=== PATIENT | female | born 2000 | race Caucasian/White ===

== ENCOUNTER 2021-04-16 12:35 | Outpatient (CLI) | payer MEDICAID, SELFPAY ==
[2021-04-16 12:35] VITALS: BMI 27.0
[2021-04-16 12:48] VITALS: RESP 18
[2021-04-16 12:55] VITALS: BP 118/69; PULSE 102
[2021-04-16 13:09] LABS: Actim Prom Negative
[2021-04-16 13:10] VITALS: BP 125/72; PULSE 103
== END 2021-04-16 13:20 | disposition home or self-care (01) ==
LOC: OPOB 12:43 → OBGYN 12:44
PROVIDERS: PCP Pediatrics Adolescent Medicine; Visit Provider Family Medicine
DX: O99.891 Other specified diseases and conditions complicating pregnancy (principal); N89.8 Other specified noninflammatory disorders of vagina
CPT/HCPCS: 59025; 84112; 99211

== ENCOUNTER 2021-06-25 09:15 | Inpatient (IN) | payer MEDICAID, SELFPAY ==
[2021-06-25] VITALS (84 sets, daily range): BP systolic 87–144; BP diastolic 51–93; PULSE 63–108; RESP 17–20; TEMP 36.2–37.2; O2SAT 97–100; BMI 28.7
[2021-06-25 08:40] LABS: Actim Prom Positive
[2021-06-25 09:27] LABS: Basophils # 0.1 10^3/uL (0.0-0.1); Basophils % 0.4 %; Eosinophils # 0.1 10^3/uL (0.0-0.8); Eosinophils % 0.7 %; Hematocrit 33.4 % (37.0-47.0); Hemoglobin 10.9 g/dL (11.5-15.3); Lymphocytes % 15.5 %; Mean Corpuscular HGB Conc 32.6 g/dL (30.0-36.0); Mean Corpuscular Hemoglobin 28.6 pg (28.0-34.0); Mean Corpuscular Volume 87.7 fl (81-99); Mean Platelet Volume 10.2 fL (7.4-10.4); Monocytes # 1.5 10^3/uL (0.2-0.9); Monocytes % 7.8 %; Neutrophils # 14.39 10^3/uL (1.8-7.7); Neutrophils % 74.6 %; Nucleated Red Blood Cells % 0 %; Platelet Count 339 10^3/cmm (130-400); Red Blood Count 3.81 10^6/uL (4.1-5.3); Red Cell Distribution Width 13.9 % (12.1-15.1); White Blood Count 19.3 10^3/uL (4.0-10.0)
[2021-06-25] MEDS: lactated ringers 1,000 ML 999 ML IV ×2 (10:17→11:01)
[2021-06-25 11:46] LABS: Adenovirus Not Detected (NOT DETECT); Chlamydia Pneumoniae Not Detected (NOT DETECT); Coronavirus 229E,HKU1,NL63,OC4 Not Detected (NOT DETECT); Human Metapneumovirus Detected (NOT DETECT); Human Rhinovirus/Enterovirus Not Detected (NOT DETECT); Influenza A Not Detected (NOT DETECT); Influenza A H1 Not Detected (NOT DETECT); Influenza A H1-2009 Not Detected (NOT DETECT); Influenza A H3 Not Detected (NOT DETECT); Influenza B Not Detected (NOT DETECT); Mycoplasma Pneumoniae Not Detected (NOT DETECT); Parainfluenza Virus Type 1 Not Detected (NOT DETECT); Parainfluenza Virus Type 2 Not Detected (NOT DETECT); Parainfluenza Virus Type 3 Not Detected (NOT DETECT); Parainfluenza Virus Type 4 Not Detected (NOT DETECT); Respiratory Syncytial Virus A Not Detected (NOT DETECT); Respiratory Syncytial Virus B Not Detected (NOT DETECT); SARS-COV-2 Not Detected (NOT DETECT)
[2021-06-25] MEDS: dextrose 5%-lactated ringers 1,000 ML 125 ML IV ×2 (11:57→18:56)
[2021-06-25 12:00] LABS: Human Metapneumovirus Detected (NOT DETECT); Human Rhinovirus/Enterovirus Not Detected (NOT DETECT); Results from Genmark
--- NOTE | 2021-06-25 18:49 | PM.OPHPUD ---
Labor & Delivery H&P Update Date of Procedure: June 25, 2021 Date H&P Performed: 06/24/21 H&P update information: I have reviewed H&P completed within last 30 days and Changes to prior documentation as noted here Changes to previous documentation: Membranes are ruptured Admission Diagnosis: 21-year-old 1 at 38 weeks estimated gestational age Planned procedure: Spontaneous vaginal delivery Other information: The patient is a healthy 1 female at 38 weeks who presented with spontaneous rupture of membranes. She had consistent contractions with making cervical change. An epidural was placed. Her has been unremarkable. Her blood type is O+. Her antibody screen is negative. Her hepatitis B, HIV, RPR were all negative. Her glucose screen was negative. And her GBS status was negative. Related Problem List Diagnoses (1) 38 weeks gestation of : (2) Spontaneous rupture of membranes:
[2021-06-25] MEDS: oxytocin 30 UNIT/500 ML BAG 500 UNIT IV (19:30)
--- NOTE | 2021-06-25 19:41 | PM.DELIVERY ---
Delivery Note: Date of delivery: June 25, 2021 Pre-delivery diagnoses: 31-year-old 1 female at 38 weeks estimated gestational age Post-delivery diagnoses: Status post spontaneous vaginal delivery Procedure: Spontaneous vaginal delivery Op report anesthesia: Epidural Delivering Physician: Julián Pierre Estimated blood loss (mL): 75 Pre-Delivery Course: The patient presented to the hospital with spontaneous rupture of membranes. She was having consistent contractions and was making cervical change. An epidural was placed. She progressed to complete without difficulty. She progressed to complete without difficulty. The baby did have several long decelerations. Fortunately, the heart tones also had good variability and accelerations. Delivery: DELIVERY: The patient progressed to complete without difficulty. She delivered a [] with a weight of [] with Apgars of []. The baby was delivered from the [] position. The baby's mouth and nose were suctioned at the site of the perineum. The baby was then completely delivered and placed on the mother's abdomen. The cord was then clamped and cut. There was no nuchal cord. There was no meconium. The placenta and 3 vessel cord were delivered intact shortly thereafter. The perineum and vaginal vault were carefully examined. No lacerations were noted. Both the mother and the baby were in stable condition. Post-Delivery Status: Good A&P Assessment and plan (1) 38 weeks gestation of : Status: Acute (2) Spontaneous rupture of membranes: Status: Acute Coding Level of Care Code Acute Coating Technician for Chg Fwd Diagnoses 38 weeks gestation of Z3A.38 Spontaneous rupture of membranes
[2021-06-25] MEDS: ibuprofen 800 mg tablet PO (20:46)
[2021-06-26] VITALS (8 sets, daily range): BP systolic 99–124; BP diastolic 64–79; PULSE 81–122; RESP 16–18; TEMP 36.4–36.7; O2SAT 96–97
[2021-06-26] MEDS: HYDROcodone-acetaminophen 5-325 mg Tablet PO ×2 (00:13→06:13)
--- NOTE | 2021-06-26 07:42 | P.DS_ITS ---
Discharge Providers DIESEL MECHANIC Date of Admission: 06/25/21 09:15 Date of Discharge: 07/11/21 Attending Provider at Admission: Julián Pierre MD Attending Provider at Discharge: Julián Pierre MD Diagnoses at Discharge Discharge Diagnosis (1) 38 weeks gestation of : Status: Resolved (2) Spontaneous rupture of membranes: Status: Resolved Reason for Visit Reason for Visit: possible rom Hospital Course Hospital Course The patient presented to the hospital with spontaneous rupture of membranes. She received an epidural. She progressed to complete and had an unremarkable delivery of a healthy appearing male . Her bleeding was within normal limits. Her pain was well controlled. She breast-fed her . With the assistance of the nurses, she was able to breast-feed successfully. There were no other concerns. Information Peripartum Data: Delivery Method: Vaginal Physical Exam Narrative: EXAM NARRATIVE: The patient is alert. She appears comfortable. Her heart has a regular rate and rhythm with no murmurs appreciated. Lungs are clear to auscultation bilaterally. Her fundus is firm and below the umbilicus. Urinary Catheter Management^: Gonzalez: Cath Placed During This Visit: yes, but has since been removed by the nurse Reason for Continuing Indwelling Catheter: Other Urinary Catheter Date of Insertion: 06/25/21 Urinary Catheter Time of Insertion: 11:50 Date Urinary Catheter Removed: 06/25/21 Time Urinary Catheter Discontinued: 17:45 Discharge Data Data Completed and Pending Pending at discharge Category Date Time Status Hemagram Timed Lab 06/26/21 07:48 Uncollected Labs from last 24 hours 06/25/21 06/25/21 06/25/21 11:59 08:50 08:50 WBC 19.3 H RBC 3.81 L Hgb 10.9 L Hct 33.4 L MCV 87.7 MCH 28.6 MCHC 32.6 RDW 13.9 Plt Count 339 MPV 10.2 Neut % (Auto) 74.6 Lymph % (Auto) 15.5 [place] % (Auto) 7.8 Eos % (Auto) 0.7 Baso % (Auto) 0.4 Neut # (Auto) 14.39 H Lymph # (Auto) 3.0 [place] # (Auto) 1.5 H Eos # (Auto) 0.1 Baso # (Auto) 0.1 Nucleated RBC % (auto) 0 Nucleated RBCs # 0.0 Insulin-like GF I Coronavirus 229E (PCR) Not detected Human Metapneumovir PCR Detected A Entero/Rhino (PCR) Not detected SARS-CoV-2 (PCR) Not detected 06/25/21 08:20 WBC RBC Hgb Hct MCV MCH MCHC RDW Plt Count MPV Neut % (Auto) Lymph % (Auto) [place] % (Auto) Eos % (Auto) Baso % (Auto) Neut # (Auto) Lymph # (Auto) [place] # (Auto) Eos # (Auto) Baso # (Auto) Nucleated RBC % (auto) Nucleated RBCs # Insulin-like GF I Positive Coronavirus 229E (PCR) Human Metapneumovir PCR Entero/Rhino (PCR) SARS-CoV-2 (PCR) Vitals Last Vital Signs Temp 97.6 F 06/26/21 05:15 Pulse 81 06/26/21 05:15 Resp 17 06/25/21 19:49 BP 120/79 06/26/21 05:15 Pulse Ox 100 06/25/21 11:51 Discharge Plan Discharge Patient Disposition: Home Condition: Stable Prescriptions: New ibuprofen 800 mg Tablet 800 mg PO TID Qty: 45 0RF Continued 28-800 mg-mcg Tablet See Rx Instructions .ROUTE .COMPLEX 0RF Rx Instructions: take daily Discharge Orders: Discharge Order (Routine); Ordered 06/26/21 Ordered By: Julián Pierre Referrals: Julián Pierre MD [Physician] - 07/28/21 10:45 am (Your appointment is scheduled for 07/28/[address] Pierre at [facility] ) Discharge Diet: Usual diet Discharge Activity: Limit activity as instructed Patient Instructions: Depression (DC), Bleeding (DC), Preeclampsia and Eclampsia After Delivery (GEN), OB Discharge Report, OB Food/Drug Interaction Guide, Opioid Safety, OB Home Care, OB Vaginal Deliveries Discharge Attestations DIESEL MECHANIC Time Spent in Discharge Care*: less than 30 min Specific Discharge Activities: Specific discharge activities: educating patient and educating and/or supporting family/caregiver Coding Level of Care Code Acute Labor Relations Supervisor for Chg Fwd Diagnoses 38 weeks gestation of Z3A.38 Spontaneous rupture of membranes
[2021-06-26 08:45] LABS: Hematocrit 35.9 % (37.0-47.0); Hemoglobin 11.2 g/dL (11.5-15.3); Mean Corpuscular HGB Conc 31.2 g/dL (30.0-36.0); Mean Corpuscular Hemoglobin 28.4 pg (28.0-34.0); Mean Corpuscular Volume 91.1 fl (81-99); Mean Platelet Volume 10.3 fL (7.4-10.4); Platelet Count 316 10^3/cmm (130-400); Red Blood Count 3.94 10^6/uL (4.1-5.3); Red Cell Distribution Width 14.1 % (12.1-15.1); White Blood Count 21.8 10^3/uL (4.0-10.0)
[2021-06-26] MEDS: ibuprofen 800 mg tablet PO ×2 (09:08→13:59)
[2021-06-26] MEDS: docusate sodium 100 mg Capsule PO ×2 (09:08→17:53)
[2021-06-26] MEDS: prenatal vitamin Capsule 1 CAP PO (09:08)
--- NOTE | 2021-06-26 10:13 | ANE.PACU2 ---
Inpatient post-anesthesia follow up: Airway intact: No Vital signs: Temperature 97.9 F Pulse Rate 87 Respiratory Rate 18 Blood Pressure 124/79 Pulse Oximetry 97 Oxygen Delivery Me thod Room Air Oxygen Flow Rate 10 Fraction of Inspir ed Oxygen Hydration adequate: Yes Nausea and vomiting: No Pain level: 2 Mental status: Baseline
--- NOTE | 2021-06-26 21:56 | PC.NURSE ---
iv line discontinued on previous shift. site asymptomatic.
== END 2021-06-26 21:15 | disposition home or self-care (01) | DRG 807 ==
LOC: OPOB 09:29 → OBGYN 09:29
PROVIDERS: Admitting Provider Family Medicine; Visit Provider Family Medicine
DX: O69.81X0 Labor and delivery complicated by cord around neck, without compression, not applicable or unspecified (principal); Z37.0 Single live birth; O99.334 Smoking (tobacco) complicating childbirth; Z3A.38 38 weeks gestation of pregnancy
CPT/HCPCS: 12345; 36415; 51702; 59025; 59409; 84112; 85025; 85027; 87635; 87801; 99211; J2795

== ENCOUNTER → 2021-11-05 14:27 | Outpatient (BNVA) | payer MEDICAID, SELFPAY | PROVIDERS: Visit Provider Psychiatry & Neurology Psychiatry | DX: F33.2 Major depressive disorder, recurrent severe without psychotic features (principal) | CPT/HCPCS: 80061; 83036 ==

== ENCOUNTER 2021-12-08 00:34 | Emergency (ER) | payer MEDICAID, SELFPAY ==
[2021-11-18 14:04] VITALS: BP 106/67; BMI 22.6
[2021-12-08 00:37] VITALS: BP 115/76; PULSE 80; RESP 16; TEMP 36.7; O2SAT 99; BMI 22.6
[2021-12-08 00:40] VITALS: BP 123/69; PULSE 84; RESP 16; O2SAT 99
--- NOTE | 2021-12-08 00:46 | ED_ITS ---
HPI - Abdominal Pain General: Chief Complaint: Abdominal Pain Stated Complaint: ABD Pain/IUD issues Time Seen by Provider: 12/08/21 00:42 History of Present Illness: 21-year-old female comes in today with complaints of discomfort with sexual intercourse. Patient has IUD in place and thinks that it might of got twisted weird causing her increased pain. Patient appears nontoxic. Patient appears in no pain at rest. Associated Symptoms: Denies nausea and vomiting Related Data: Date of Last Menstrual Period: 10/16/21 Review of Systems General: Reports: 10 or more systems reviewed and unremarkable except in HPI and below Card: Denies: chest pain Resp: Denies: dyspnea GI: Denies: nausea or vomiting : Reports: dyspareunia; Denies: difficulty voiding Skin/Breast: Denies: rash PFSH ED PFSH: Medical History (Updated 12/08/21 @ 01:35 by GIO Artis) Psychiatric care Family History (Updated 11/05/21 @ 15:02 by Consuelo Melo RN) Other Cancer Scoliosis Social History (Updated 11/05/21 @ 15:08 by Consuelo Melo RN) Smoking and tobacco status: current every day smoker e-cigarettes E-Cigarette Details: e-cigarette and with nicotine E-cig/vape details: uses a pod a day Quit status (tobacco): considering quitting Second hand smoke exposure: Yes Smoking risk assessment/counseling performed?: No Alcohol intake: current Alcohol intake frequency: holidays/special occasions only Adopted: No Caregiver/support person: No Lives independently: Yes Household members: spouse and children Housing: House Marital status: Marital status details: 1 year Number of children: 1 Number of grandchildren: 0 Highest education level completed: Associate Degree: Occupational, Technical, Vocational Program Education level details: general education service: No Current occupational status: employed 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 Current occupational exposures/hazards: No Pets and animals: Yes Pets & animals: dog(s) History of recent travel: No Leisure activites: art and other Leisure activities details: watch TV, plays banjo Sexually active: Yes Current gender identity: Female Henrietta/Mandaeism: None Special henrietta needs: No Agree to transfusion: Yes Financial difficulty paying for basics: Very Hard Female Reproductive History: Date of last menstrual period: 10/16/21 Para: 1 Physical Exam Const: COMMON NORMALS: alert HENMT: COMMON NORMALS: normocephalic HEAD & SCALP: normocephalic Neck/C-Spine: COMMON NORMALS: full ROM Resp: COMMON NORMALS: normal respiratory effort Cardio: COMMON NORMALS: regular rate RATE: regular rate GI: COMMON NORMALS: non-tender : COMMON NORMALS: Yes no CVA tenderness, Yes normal external appearance and Yes normal appearance of the vagina BLADDER/KIDNEY EXAM: Yes no CVA tenderness SPECULUM EXAM - CERVIX: Yes IUD string present and Yes Cervical tenderness present BIMANUAL EXAM - VAGINA & UTERUS: Yes Cervical tenderness present Back/Pelvis: COMMON NORMALS: no CVA tenderness Neuro: SENSORIUM/ORIENTATION: Yes alert Skin: COMMON NORMALS: no rashes or lesions noted GENERAL SKIN EXAM: no rashes or lesions noted Course Vital Signs: Vital signs: Vital Signs Temperature 98.1 F 12/08/21 00:37 Pulse Rate 87 12/08/21 01:10 Respiratory Rate 14 12/08/21 01:10 Blood Pressure 123/69 12/08/21 01:10 Pulse Oximetry 99 12/08/21 01:10 MDM - Abdominal Pain Medical Decision Making 21-year-old female comes in today with painful intercourse and concern for her IUD placement. On exam patient appears well. Patient appears no acute distress. Pelvic exam was completed cervix appears slightly erythematous and string is noted in the cervix. Vaginal mucosa is normal. Differential diagnosis includes vaginitis, cervicitis, displacement of IUD. Wet prep was unremarkable. Urinalysis had some blood and skin cells in it. Gonorrhea and Chlamydia test was outstanding. Reflex culture of urine was sent. Recommended pelvic rest and lots of fluids at this time. Recommend follow-up with primary care or VICE PRESIDENT OF DEVELOPMENT specialist for further evaluation and treatment. Patient reported understanding agreed to plan. Lab Data Labs/Radiology: Laboratory Results Urine Color Yellow (Yellow) 12/08/21 01:10 Urine Appearance Clear (CLEAR) 12/08/21 01:10 Urine pH 5 (5-7) 12/08/21 01:10 Ur Specific [place] 1.020 (1.005-1.030) 12/08/21 01:10 Urine Protein Neg (Negative) 12/08/21 01:10 Urine Glucose (UA) Norm (Normal) 12/08/21 01:10 Urine Ketones Negative (Negative) 12/08/21 01:10 Urine Blood 2+ (Negative) H 12/08/21 01:10 Urine Nitrate Negative (Negative) 12/08/21 01:10 Urine Bilirubin Neg (Negative) 12/08/21 01:10 Urine Urobilinogen Norm mg/dL (Negative) 12/08/21 01:10 Ur Leukocyte Esterase Trace (Negative) H 12/08/21 01:10 Urine RBC 5-10 /hpf (0-2) H 12/08/21 01:10 Urine WBC 5-10 /hpf (0-5) H 12/08/21 01:10 Ur Squamous Epith Cells 10-15 /hpf (0-5) H 12/08/21 01:10 Amorphous Sediment Not Reportable 12/08/21 01:10 Urine Bacteria Trace /hpf (NONE) 12/08/21 01:10 Urine Mucus 2+ /hpf 12/08/21 01:10 Urine HCG, Qual Negative (Negative) 12/08/21 01:10 Discharge Plan Discharge Patient Disposition: Home Clinical Impression: Painful intercourse Condition: Stable Prescriptions: No Action 28-800 mg-mcg Tablet See Rx Instructions .ROUTE .COMPLEX 0RF Rx Instructions: take daily ibuprofen 800 mg Tablet 800 mg PO TID Qty: 45 0RF Discharge Orders: Discharge ED (Routine); Ordered 12/08/21 Ordered By: Alexandre Dyer Discharge Diet: Usual diet Discharge Activity: Increase activity as tolerated Patient Instructions: Dyspareunia in Women (DC) Activity Restrictions/Additional Instructions: Limit intercourse for the next 2 to 3 days until pain improves. Drink plenty of water. Monitor for fever. Follow-up with primary care for results of ER testing. Return to ER for high fever greater than 100.4, bleeding through more than 1 pad an hour, or new concerns. Coding Level of Care Code ED Occupational Therapy Assistant for Vanessa Galvan
[2021-12-08 01:10] VITALS: BP 123/69; PULSE 87; RESP 14; O2SAT 99
--- NOTE | 2021-12-08 01:11 | XRR_ITS ---
PROCEDURE INFORMATION: Exam: XR Abdomen Exam date and time: 12/08/2021 1:13 AM Age: 21 years old Clinical indication: Abdominal pain; Localized; Patient HX: C/O lower abd/pelvic pain. Painful intercourse since placement of iud. ; Additional info: Abd pain TECHNIQUE: Imaging protocol: Radiologic exam of the abdomen. Views: Frontal supine view of the abdomen. 1 View. COMPARISON: No relevant prior studies available. FINDINGS: Tubes, catheters and devices: Intrauterine device within the pelvis. Gastrointestinal tract: Moderate to large colonic fecal volume. Negative for bowel loop dilation. Intraperitoneal space: Negative for pneumoperitoneum. Bones/joints: Unremarkable. XR/XR KUB [id number] IMPRESSION: Negative for acute abdominopelvic abnormality.
[2021-12-08 01:27] LABS: Urine Appearance Clear (CLEAR); Urine Color Yellow (Yellow)
[2021-12-08 01:28] LABS: Add Urine Microscopic? YES; Bilirubin Urine Neg (Negative); Blood Urine 2+ (Negative); Glucose Urine UA Norm (Normal); Ketones Urine Negative (Negative); Leukocyte Esterase Urine Trace (Negative); Nitrate Urine Negative (Negative); Protein Urine Neg (Negative); Urobilinogen Urine Norm (Negative); pH Urine 5 (5-7)
[2021-12-08 01:29] LABS: Add Urine Culture? No; Bacteria Urine TRACE /hpf; Mucus Urine 2+ /hpf
[2021-12-08 01:30] VITALS: BP 107/63; PULSE 77; RESP 14; O2SAT 100
[2021-12-08 02:26] VITALS: BP 107/63; PULSE 77; RESP 14; O2SAT 100
== END 2021-12-08 01:40 | disposition home or self-care (01) ==
PROVIDERS: Emergency Provider Nurse Practitioner Family
DX: N94.10 Unspecified dyspareunia (principal); F17.290 Nicotine dependence, other tobacco product, uncomplicated
CPT/HCPCS: 74018; 81001; 81025; 87070; 87205; 87210; 87491; 87591; 99283; E0352

== ENCOUNTER 2022-09-11 23:33 | Emergency (ER) | payer MEDICAID, SELFPAY ==
[2021-11-18 14:04] VITALS: BP 106/67; BMI 22.6
[2022-09-11 23:53] VITALS: BP 129/82; PULSE 81; RESP 18; TEMP 36.6; O2SAT 98; BMI 25.6
[2022-09-12 03:00] VITALS: BP 116/74; PULSE 76; RESP 18; O2SAT 99
[2022-09-12] MEDS: sodium chloride 0.9% 1,000 ML 999 ML IV (03:45)
[2022-09-12] MEDS: ondansetron 2 mg/ML SDV 2 mL 4 MG IVP (03:45)
[2022-09-12 03:51] LABS: Basophils % 0.5 %; Eosinophils # 0.1 10^3/uL (0.0-0.8); Eosinophils % 0.8 %; Hematocrit 42.6 % (37.0-47.0); Hemoglobin 14.2 g/dL (11.5-15.3); Lymphocytes # 3.1 10^3/uL (0.8-4.8); Lymphocytes % 37.2 %; Mean Corpuscular HGB Conc 33.3 g/dL (30.0-36.0); Mean Corpuscular Hemoglobin 28.9 pg (28.0-34.0); Mean Corpuscular Volume 86.8 fl (81-99); Mean Platelet Volume 9.6 fL (7.4-10.4); Monocytes # 0.9 10^3/uL (0.2-0.9); Monocytes % 11.2 %; Neutrophils # 4.15 10^3/uL (1.8-7.7); Neutrophils % 50.1 %; Nucleated Red Blood Cells % 0 %; Platelet Count 451 10^3/cmm (130-400); Red Blood Count 4.91 10^6/uL (4.1-5.3); Red Cell Distribution Width 12.9 % (12.1-15.1); White Blood Count 8.3 10^3/uL (4.0-10.0)
--- NOTE | 2022-09-12 04:03 | W.ED.NAVMDI ---
HPI - Nausea/Vomiting/Diarrhea General: Chief complaint: Nausea/Vomiting/Diarrhea Stated complaint: unable to eat Time Seen by Provider: 09/12/22 02:10 History of Present Illness: 22-year-old female who says for the past several months she has had problems with vomiting after she eats. She says she vomits quite a bit of mucus usually after meals so much so that she has not been able to eat much. She has not had anything to eat in the last over 24 hours. She was dizzy at home and feeling worse, so she decided to come to the ER. She is supposed to see her primary care physician on 09/22 and talk about an EGD, as she was placed on stomach medicine with no relief prior. MD elicited complaint: nausea and vomiting Pertinent past history: other Onset (ago): month(s) Description of vomiting: watery Associated nausea: Yes Associated abdominal pain: Yes Location of pain: Epigastric Radiation: diffuse Pain consistency: intermittent Severity: moderate Exacerbating factors: eating Relieving factors: none Associated symtoms: Reports anxiety, dizziness, headache(s) and nausea; Denies change in vision, chest pain, cough, fevers/chills, short of breath or syncope Review of Systems Const: Denies: fever(s), chills or body aches Eyes: Denies: change in vision Card: Denies: chest pain or syncope Resp: Reports: dyspnea GI: Reports: nausea and vomiting : Denies: difficulty voiding Musc: Reports: back pain Skin/Breast: Denies: rash Neuro: Reports: headache(s) and dizziness Psych: Reports: anxiety PFSH ED PFSH: Medical History Psychiatric care Family History (Updated 11/05/21 @ 15:02 by Consuelo Melo RN) Other Cancer Scoliosis Social History Smoking and tobacco status: current every day smoker e-cigarettes E-Cigarette Details: e-cigarette and with nicotine E-cig/vape details: refill/ 2 days Quit status (tobacco): has tried quititng Number of times tried to quit tobacco: 1 Second hand smoke exposure: No Smoking risk assessment/counseling performed?: No Alcohol intake: former Year of sobriety/quit date alcohol: 2021 Desire information about alcohol rehabilitation?: No Counseling given: No Desire information about substance/drug rehabilitation?: No Counseling given: No Adopted: No Caregiver/support person: No Lives independently: Yes Household members: spouse and children Housing: House Marital status: Marital status details: 1 year Number of children: 1 Number of grandchildren: 0 Highest education level completed: Associate Degree: Occupational, Technical, Vocational Program Education level details: general education service: No Current occupational status: employed 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 Current occupational exposures/hazards: No Pets and animals: Yes Pets & animals: dog(s) Leisure activites: art and other Leisure activities details: watch TV, plays [place] Sexually active: Yes Current gender identity: Female Henrietta/Muslim: None Special henrietta needs: No Agree to transfusion: Yes Financial difficulty paying for basics: Very Hard Female Reproductive History: Para: 1 Physical Exam Const: COMMON NORMALS: no acute distress GENERAL APPEARANCE: cooperative; not ill appearing and not frail appearing HENMT: COMMON NORMALS: normocephalic, atraumatic and Normal external nose present HEAD & SCALP: normocephalic and atraumatic FACE & SINUS: normal facial exam and face symmetric NOSE: Normal external nose present Eye: COMMON NORMALS: Equal, round and reactive pupils present and EOMs intact bilaterally PUPIL: Yes Equal, round and reactive pupils present Neck/C-Spine: GENERAL: Yes trachea midline Chest: CHEST: Yes Symmetrical chest wall rise Resp: COMMON NORMALS: normal respiratory effort, No retractions, No use of accessory muscles and clear to auscultation bilaterally AUSCULTATION: clear to auscultation bilaterally Cardio: COMMON NORMALS: regular rate and regular rhythm RATE: regular rate RHYTHM: regular rhythm GI: COMMON NORMALS: Normal to inspection, nondistended, normoactive bowel sounds present PALPATION: Yes Tenderness to palpation present (GI) (Epigastric) Extremity: COMMON NORMALS: no pedal edema Neuro: STEPHAN COMA SCALE: document GCS findings Stephan coma scale eye opening: Spontaneous [place] coma scale verbal response: Orientated [place] coma scale motor response: Obey commands Stephan coma scale total score: 15 SENSORY EXAM: Yes extremities (intact) Psych: COMMON NORMALS: speech normal SPEECH: Yes normal speech Skin: COMMON NORMALS: no rashes or lesions noted GENERAL SKIN EXAM: no rashes or lesions noted Course Vital Signs: Vital signs: Vital Signs Temperature 98 F 04/01/23 23:53 Pulse Rate 76 09/12/22 03:00 Respiratory Rate 18 09/12/22 03:00 Blood Pressure 116/74 09/12/22 03:00 Pulse Oximetry 99 09/12/22 03:00 Oxygen Delivery Me thod 09/12/22 03:00 MDM - Nausea/Vomiting/Diarrhea Medical Decision Making Hemoglobin is normal. White blood cell count is normal. Sodium is 128. Other laboratory findings are essentially normal including urinalysis. She has had a liter of fluid and antiemetic here. She is also had a GI cocktail. She will be discharged to follow-up as an outpatient with her PCP regarding potential scope as she discussed. We will put her on sucralfate for now with meals. Lab Data 09/12/22 03:40 09/12/22 03:40 Laboratory Results WBC 8.3 10^3/uL (4.0-10.0) 09/12/22 03:40 RBC 4.91 10^6/uL (4.1-5.3) 09/12/22 03:40 Hgb 14.2 g/dL (11.5-15.3) 09/12/22 03:40 Hct 42.6 % (37.0-47.0) 09/12/22 03:40 MCV 86.8 fl (81-99) 09/12/22 03:40 MCH 28.9 pg (28.0-34.0) 09/12/22 03:40 MCHC 33.3 g/dL (30.0-36.0) 09/12/22 03:40 RDW 12.9 % (12.1-15.1) 09/12/22 03:40 Plt Count 451 10^3/cmm (130-400) H 09/12/22 03:40 MPV 9.6 fL (7.4-10.4) 09/12/22 03:40 Neut % (Auto) 50.1 % 09/12/22 03:40 Lymph % (Auto) 37.2 % 09/12/22 03:40 [place] % (Auto) 11.2 % 09/12/22 03:40 Eos % (Auto) 0.8 % 09/12/22 03:40 Baso % (Auto) 0.5 % 09/12/22 03:40 Neut # (Auto) 4.15 10^3/uL (1.8-7.7) 09/12/22 03:40 Lymph # (Auto) 3.1 10^3/uL (0.8-4.8) 09/12/22 03:40 [place] # (Auto) 0.9 10^3/uL (0.2-0.9) 09/12/22 03:40 Eos # (Auto) 0.1 10^3/uL (0.0-0.8) 09/12/22 03:40 Baso # (Auto) 0.0 10^3/uL (0.0-0.1) 09/12/22 03:40 Nucleated RBC % (auto) 0 % 09/12/22 03:40 Nucleated RBCs # 0.0 /100WBC 09/12/22 03:40 Sodium 128 mmol/L (136-145) L 09/12/22 03:40 Potassium 3.6 mmol/L (3.5-5.1) 09/12/22 03:40 Chloride 98 mmol/L (98-107) 09/12/22 03:40 Carbon Dioxide 22 mmol/L (22-29) 09/12/22 03:40 Anion Gap 11.6 (5-19) 09/12/22 03:40 BUN 9 mg/dL (6-20) 09/12/22 03:40 Creatinine 0.5 mg/dL (0.5-0.9) 09/12/22 03:40 GFR Calculation 154.3 mL/min (90-130) H 09/12/22 03:40 Glucose 83 mg/dL (65-115) 09/12/22 03:40 Calculated Osmolality 264 mOsm/kg (285-295) L 09/12/22 03:40 Calcium 9.3 mg/dL (8.5-10.5) 09/12/22 03:40 Total Bilirubin 0.5 mg/dL (0.15-1.2) 09/12/22 03:40 AST 18 U/L (0-32) 09/12/22 03:40 ALT 13 U/L (0-33) 09/12/22 03:40 Alkaline Phosphatase 61 U/L (35-105) 09/12/22 03:40 Total Protein 7.5 g/dL (6.6-8.7) 09/12/22 03:40 Albumin 4.5 g/dL (3.5-5.2) 09/12/22 03:40 Globulin 3.0 g/dL (1.3-4.6) 09/12/22 03:40 Lipase 33 U/L (13-60) 09/12/22 03:40 HCG, Qual Negative (Negative) 09/12/22 03:40 Urine Color Yellow (Yellow) 09/12/22 03:40 Urine Appearance Clear (CLEAR) 09/12/22 03:40 Urine pH 7 (5-7) 09/12/22 03:40 Ur Specific [place] 1.005 (1.005-1.030) 09/12/22 03:40 Urine Protein Neg (Negative) 09/12/22 03:40 Urine Glucose (UA) Norm (Normal) 09/12/22 03:40 Urine Ketones Negative (Negative) 09/12/22 03:40 Urine Blood Neg (Negative) 09/12/22 03:40 Urine Nitrate Negative (Negative) 09/12/22 03:40 Urine Bilirubin Neg (Negative) 09/12/22 03:40 Urine Urobilinogen Norm mg/dL (Negative) 09/12/22 03:40 Ur Leukocyte Esterase Negative (Negative) 09/12/22 03:40 Discharge Plan Discharge Patient Disposition: Home Clinical Impression: Gastritis Condition: Stable Prescriptions: New sucralfate 1 gram tablet 1 g PO TID 28 Days Qty: 84 0RF No Action prazosin 2 mg capsule 2 mg PO .HS Qty: 30 2RF duloxetine 30 mg capsule,delayed release(DR/EC) 30 mg PO DAILY Qty: 30 2RF trazodone 50 mg tablet 100 mg PO .HS PRN (Reason: insomnia) Qty: 60 1RF Discharge Orders: Discharge ED (Routine); Ordered 09/12/22 Ordered By: Joe Crews Referrals: Julián Pierre MD [Physician] - 7-10 days Patient Instructions: Gastritis (ED) Activity Restrictions/Additional Instructions: Your laboratory work-up did not reveal a cause of your symptoms. Your symptoms are likely related to an inflammation of the wall of the stomach called gastritis. The medication prescribed to you can help with this. You should take it 30 minutes before meals. Follow-up with your doctor as scheduled. Return for worsening symptoms despite treatment. Coding Level of Care Code ED Power Electronics Engineer for Vanessa Galvan
[2022-09-12 04:08] LABS: Charge for UA Resulting for Rev
[2022-09-12 04:13] LABS: Alanine Aminotransferase 13 U/L (0-33); Albumin Level 4.5 g/dL (3.5-5.2); Alkaline Phosphatase 61 U/L (35-105); Anion Gap 11.6 (5-19); Aspartate Amino Transferase 18 U/L (0-32); Blood Urea Nitrogen 9 mg/dL (6-20); Calcium 9.3 mg/dL (8.5-10.5); Carbon Dioxide 22 mmol/L (22-29); Chloride 98 mmol/L (98-107); Glomerular Filtration Rate 154.3 mL/min (90-130); Glucose 83 mg/dL (65-115); Lipase 33 U/L (13-60); Osmolality Calculated 264 mOsm/kg (285-295); Potassium 3.6 mmol/L (3.5-5.1); Sodium 128 mmol/L (136-145); Total Bilirubin 0.5 mg/dL (0.15-1.2); Total Protein 7.5 g/dL (6.6-8.7)
[2022-09-12 04:17] LABS: Urine Appearance Clear (CLEAR); Urine Color Yellow (Yellow)
[2022-09-12 04:18] LABS: Bilirubin Urine Neg (Negative); Blood Urine Neg (Negative); Glucose Urine UA Norm (Normal); HCG, Serum Qual Negative (Negative); Ketones Urine Negative (Negative); Leukocyte Esterase Urine Negative (Negative); Nitrate Urine Negative (Negative); Protein Urine Neg (Negative); Specific Gravity, Urine 1.005 (1.005-1.030); Urobilinogen Urine Norm (Negative); pH Urine 7 (5-7)
--- NOTE | 2022-09-21 15:48 | DCPLANNER ---
desktop manager called patient due to no primary care physician - patient stated that she [place]. [place] [facility] [place]
== END 2022-09-12 05:01 | disposition home or self-care (01) ==
PROVIDERS: Emergency Provider Emergency Medicine; PCP Family Medicine
DX: K29.70 Gastritis, unspecified, without bleeding (principal); F17.290 Nicotine dependence, other tobacco product, uncomplicated
CPT/HCPCS: 80053; 81003; 83690; 84703; 85025; 96361; 96374; 99284; J2405; J7030

== ENCOUNTER 2022-09-22 07:22 | Outpatient (CLI) | payer MEDICAID, SELFPAY ==
[2021-11-18 14:04] VITALS: BP 106/67; BMI 22.6
--- NOTE | 2022-09-22 07:40 | US_ITS ---
WS: [id number] ABDOMINAL ULTRASOUND REASON FOR EXAM: ABDOMINAL PAIN COMPARISON: None available. ORDER DATE: 09/22/2022 7:43 AM TECHNIQUE: Grayscale and Doppler ultrasound examination of the abdomen. FINDINGS: Pancreas: Unremarkable as visualized Abdominal aorta and IVC: 12 mm diameter aorta IVC unremarkable Liver: Liver measures 14.5 cm in length. Normal echotexture.Portal vein 8 mm in diameter with hepatop edal flow Gallbladder: Gallbladder wall thickness measures 0.2 mm. No evidence of cholelithiasis Left kidney: Left kidney measures 9.7 cm x 5.4 cm x 5.9 cm. Satisfactory duplex vascularity Right kidney: Right kidney measures 9.8 cm x 4.3 cm x 3.8 cm. Satisfactory duplex vascularity Spleen: Spleen measures 8.1 cm x 3.2 cm x 8.0 cm. No focal change US/US abdomen complete* [id number] IMPRESSION: Unremarkable
== END 2022-09-22 07:23 | disposition home or self-care (01) ==
PROVIDERS: Visit Provider Family Medicine
DX: R10.9 Unspecified abdominal pain (principal)
CPT/HCPCS: 76700

== ENCOUNTER 2023-06-21 14:55 | Emergency (ER) | payer MEDICAID, SELFPAY ==
[2021-11-18 14:04] VITALS: BP 106/67; BMI 22.6
[2023-06-21 15:12] VITALS: BP 117/59; PULSE 147; RESP 16; TEMP 36.9; O2SAT 97; BMI 27.4
--- NOTE | 2023-06-21 18:46 | CTR_ITS ---
PROCEDURE INFORMATION: Exam: CT Head Without Contrast Exam date and time: 06/21/2023 7:30 PM Age: 23 years old Clinical indication: Other: Seizure; Additional info: Seizure like activity observed; No history TECHNIQUE: Imaging protocol: Computed tomography of the head without contrast. Axial, coronal and sagittal reformatted images were created and reviewed. Radiation optimization: All CT scans at this facility use at least one of these dose optimization techniques: automated exposure control; mA and/or kV adjustment per patient size (includes targeted exams where dose is matched to clinical indication); or iterative reconstruction. COMPARISON: No relevant prior studies available. RADIATION DOSE METRICS: Total DLP (mGy-cm): 1003 FINDINGS: Brain: No CT evidence of acute intracranial hemorrhage or acute territorial infarction. No significant mass effect or midline shift. Basal cisterns patent. Cerebral ventricles: Normal in size and configuration. Paranasal sinuses: Unremarkable. No fluid levels. Mastoid air cells: Grossly unremarkable. Bones/joints: No acute osseous abnormality. Soft tissues: Grossly unremarkable. CT/CT head wo con* [id number] IMPRESSION: No CT evidence of acute intracranial pathology.
--- NOTE | 2023-06-21 18:48 | ED_ITS ---
HPI - Altered Mental Status 2 General: Chief Complaint: Altered Mental Status Stated Complaint: abd pain Time Seen by Provider: 06/21/23 18:05 History of Present Illness: 23-year-old female presents the emergenc y department for what she is describing as uncontrollable body jerks. She feels like she cannot make herself stop. She reports sometimes her eyes even roll up and she feels sort of in a daze. Further history reveals that she started having some abdominal pain yesterday. She reports that it made her felt puller her car because she felt lightheaded with the pain. She got home and was working through her abdominal pain which she thought might be related to constipation when she started to have these jerks. They were a lot worse today. She does have a past medical history of anxiety and depression but denies any medication changes, head injury, fever, chills, thyroid disorder, parathyroid disorder, electrolyte abnormalities, Tourette's, OCD, drug use. She does use nicotine but has not changed her dosage. Denies excessive caffeine use. During the history it is noted she has poor eye contact and seems to stop the jerking at times and then starts again moments later. Review of Systems 2 General: Reports: 10 or more systems reviewed and unremarkable except in HPI and below Const: Denies: fever(s), chills or body aches Eyes: Denies: change in vision ENMT: Denies: throat pain Card: Denies: chest pain, edema or syncope Resp: Denies: dyspnea or productive cough GI: Reports: abdominal pain, nausea and constipation; Denies: vomiting or diarrhea : Denies: flank pain, dysuria or urinary frequency Musc: Denies: neck pain, back pain, extremity pain or extremity swelling Skin/Breast: Denies: rash or erythema Neuro: Denies: headache(s), numbness in extremities, weakness in extremities, lack of coordination or difficulty walking Psych: Reports: anxiety PFSH ED 2 PFSH: Medical History Psychiatric care Family History (Updated 11/05/21 @ 15:02 by Consuelo Melo RN) Other Cancer Scoliosis Social History Smoking and tobacco/nicotine status: current every day tobacco/nicotine user e- cigarettes E-Cigarette Details: e-cigarette and with nicotine E-cig/vape details: refill/ 2 days Quit status (tobacco/nicotine): has tried quititng Number of times tried to quit tobacco: 1 Second hand smoke exposure: No Alcohol intake: former Year of sobriety/quit date alcohol: 2021 Substance/Drug Use: former Adopted: No Caregiver/support person: No Lives independently: Yes Household members: spouse and children Housing: House Marital status: Marital status details: 1 year Number of children: 1 Number of grandchildren: 0 Highest education level completed: Associate Degree: Occupational, Technical, Vocational Program Education level details: general education service: No Current occupational status: employed 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 She is having intermittent irregular jerking movements that appear nonpurposeful. Patient feels like she cannot make them stop. Her reflexes show 1+ response. She is not hyperreflexive. She does not have increased muscle tone. Occasionally her shakes stop and she finishes some thoughts and then they will start again. At times during the conversation she rolls her eyes up into the left but is still talking. It is noted that she does not have a vocal tremor and her tongue does not have any fasciculations or tremors. She is not hyperthermic. She has poor eye contact. Const: COMMON NORMALS: no limitations, alert and well nourished EXAM LIMITATIONS: no altered mental status GENERAL APPEARANCE: well kempt HENMT: COMMON NORMALS: normocephalic, atraumatic and external ears normal H EAD & SCALP: normocephalic and atraumatic EXTERNAL EAR: Yes external ears normal MOUTH: no muffled voice Eye: COMMON NORMALS: EOMs intact bilaterally, conjunctivae normal and no scleral icterus CONJUNCTIVA: Yes conjunctivae normal Neck/C-Spine: COMMON NORMALS: no JVD GENERAL: Yes normal visual inspection and Yes trachea midline Resp: COMMON NORMALS: normal respiratory effort, No use of accessory muscles and clear to auscultation bilaterally AUSCULTATION: clear to auscultation bilaterally Cardio: COMMON NORMALS: no JVD and regular rhythm RHYTHM: regular rhythm GI: COMMON NORMALS: Soft to palpation and non-tender PALPATION: Yes Soft to palpation and No Guarding due to palpation present (GI) Extremity: COMMON NORMALS: normal to inspection Neuro: COMMON NORMALS: moves all extremities, no focal motor deficits and no sensory deficits noted SENSORIUM/ORIENTATION: Yes alert SPEECH: speech normal Psych: COMMON NORMALS: mental status grossly normal, Normal thought process present, cooperative and speech normal; negative for activity/motor behavior normal APPEARANCE: Yes grossly normal and Yes well kempt SPEECH: Yes normal speech MOOD & AFFECT: No tearful and Yes Flat affect present THOUGHT PROCESS: Normal thought process present, No disorganized, not confabulating, no flight of ideas, logical and normal association THOUGHT CONTENT: Yes Normal thought content present A TTENTION/CONCENTRATION: Yes attention grossly intact MEMORY/COGNITION: Yes memory grossly intact INSIGHT: Fair insight present (Psych) Skin: COMMON NORMALS: no rashes or lesions noted, turgor normal and no jaundice GENERAL SKIN EXAM: no rashes or lesions noted and turgor normal Course 2 Vital Signs: Vital signs: Vital Signs Temperature 98.5 F 06/21/23 15:12 Pulse Rate 82 06/21/23 20:23 Respiratory Rate 16 06/21/23 20:23 Blood Pressure 105/60 06/21/23 20:23 Pulse Oximetry 99 06/21/23 20:23 Oxygen Delivery Me thod Room Air 06/21/23 20:23 MDM - Altered Mental Status Medical Decision Making I suspect this is probably a form of nonepileptic seizure . The pattern and distribution of her shakes are difficult to explain but it is notable that she can perform extraocular movements without any oculogyric spasm or fasciculations or nystagmus. However as soon as I get done having her do a focused activity, then her shakes began again. She has poor eye contact. At times she flutters her eyelids and rolls her eyes back into the left but continues talking to me. I will screen for any electrolyte abnormalities, glycemic abnormalities, acid- base disturbances, collected drug screen, do a CT scan of her head, rule out . I am going to go ahead and give her some lorazepam and olanzapine as I think this is probably some type of psychosomatic conversion/PNES UPDATE: Labs are unremarkable with exception of minimally elevated platelet count. UA, UDS, UPT negative CT scan of the head unremarkable. Patient was given Ativan and olanzapine. Her symptoms resolved almost immediately. She is now calm with good eye contact and no further psychomotor agitation. Strongly suspect psychogenic nonepileptic seizure. Abdomen soft nontender with normal LFTs, white count, kidney function, lipase. Discussed diagnosis with patient and mother as well as family member. It is always difficult to explain this diagnosis the first time. The patient actually showed good insight and understanding. I explained that this is a working diagnosis until she has an EEG. Consider not driving until follow-up. Patient was given a referral through case management to neurology. Patient is appropriate for discharge at this time. Lab Data 06/21/23 18:35 06/21/23 18:[address] 06/21/23 18:46 IMPRESSION: No CT evidence of acute intracranial pathology. Laboratory Results WBC 9.16 10^3/uL (3.29-11.43) 06/21/23 18:35 RBC 5.12 10^6/uL (3.85-5.65) 06/21/23 18:35 Hgb 15.10 g/dL (11.27-16.99) 06/21/23 18:35 Hct 46.1 % (36-47) 06/21/23 18:35 MCV 90.0 fl (85-98) 06/21/23 18:35 MCH 29.5 pg (27-33) 06/21/23 18:35 MCHC 32.8 g/dL (30-55) 06/21/23 18:35 RDW 12.9 % (12.1-15.1) 06/21/23 18:35 Plt Count 440 10^3/cmm (157-399) H 06/21/23 18:35 MPV 9.7 fL (7.4-10.4) 06/21/23 18:35 Neut % (Auto) 63.0 % 06/21/23 18:35 Lymph % (Auto) 25.9 % 06/21/23 18:35 [place] % (Auto) 10.3 % 06/21/23 18:35 Eos % (Auto) 0.2 % 06/21/23 18:35 Baso % (Auto) 0.4 % 06/21/23 18:35 Neut # (Auto) 5.77 10^3/uL (1.8-7.7) 06/21/23 18:35 Lymph # (Auto) 2.4 10^3/uL (0.8-4.8) 06/21/23 18:35 [place] # (Auto) 0.9 10^3/uL (0.2-0.9) 06/21/23 18:35 Eos # (Auto) 0.0 10^3/uL (0.0-0.8) 06/21/23 18:35 Baso # (Auto) 0.0 10^3/uL (0.0-0.1) 06/21/23 18:35 Nucleated RBC % (auto) 0 % 06/21/23 18:35 Nucleated RBCs # 0.0 /100WBC 06/21/23 18:35 Sodium 142 mmol/L (136-145) 06/21/23 18:35 Potassium 4.0 mmol/L (3.5-5.1) 06/21/23 18:35 Chloride 108 mmol/L (98-107) H 06/21/23 18:35 Carbon Dioxide 22 mmol/L (22-29) 06/21/23 18:35 Anion Gap 16.0 (5-19) 06/21/23 18:35 BUN 7 mg/dL (6-20) 06/21/23 18:35 Creatinine 0.7 mg/dL (0.5-0.9) 06/21/23 18:35 GFR Calculation 103.7 mL/min (90-130) 06/21/23 18:35 Glucose 94 mg/dL (65-115) 06/21/23 18:35 Calculated Osmolality 292 mOsm/kg (285-295) 06/21/23 18:35 Calcium 9.6 mg/dL (8.5-10.5) 06/21/23 18:35 Magnesium 2.1 mg/dL (1.7-2.3) 06/21/23 18:35 Total Bilirubin 0.4 mg/dL (0.15-1.2) 06/21/23 18:35 AST 18 U/L (0-32) 06/21/23 18:35 ALT 10 U/L (0-33) 06/21/23 18:35 Alkaline Phosphatase 59 U/L (35-105) 06/21/23 18:35 Total Protein 7.7 g/dL (6.6-8.7) 06/21/23 18:35 Albumin 4.6 g/dL (3.5-5.2) 06/21/23 18:35 Globulin 3.1 g/dL (1.3-4.6) 06/21/23 18:35 Lipase 25 U/L (13-60) 06/21/23 18:35 TSH 1.00 uIU/mL (0.27-4.20) 06/21/23 18:35 HCG, Qual Negative (Negative) 06/21/23 18:57 Urine Color Straw (Yellow) 06/21/23 18:57 Urine Appearance Clear (CLEAR) 06/21/23 18:57 Urine pH 7 (5-7) 06/21/23 18:57 Ur Specific [place] 1.005 (1.005-1.030) 06/21/23 18:57 Urine Protein Neg (Negative) 06/21/23 18:57 Urine Glucose (UA) Norm (Normal) 06/21/23 18:57 Urine Ketones Negative (Negative) 06/21/23 18:57 Urine Blood Neg (Negative) 06/21/23 18:57 Urine Nitrate Negative (Negative) 06/21/23 18:57 Urine Bilirubin Neg (Negative) 06/21/23 18:57 Urine Urobilinogen Norm mg/dL (Negative) 06/21/23 18:57 Ur Leukocyte Esterase Negative (Negative) 06/21/23 18:57 Urine Opiates Screen Negative ng/mL (Negative) 06/21/23 18:57 Ur Barbiturates Screen Negative ng/mL (Negative) 06/21/23 18:57 Ur Phencyclidine Scrn Negative ng/mL (Negative) 06/21/23 18:57 Ur Amphetamines Screen Negative ng/mL (Negative) 06/21/23 18:57 U Benzodiazepines Scrn Negative ng/mL (Negative) 06/21/23 18:57 Urine Cocaine Screen Negative ng/mL (Negative) 06/21/23 18:57 U Marijuana (THC) Screen Negative ng/mL (Negative) 01/09/24 18:57 All radiology interpretation(s) finalized by discharge Discharge Plan Discharge Patient Disposition: Home Clinical Impression: Psychogenic nonepileptic seizure, Intermittent abdominal pain Condition: Stable Prescriptions: No Action norethindrone (contraceptive) 0.35 mg tablet 0.35 mg PO DAILY hydroxyzine HCl 50 mg tablet 50 mg PO QID PRN (Reason: anxiety/insomnia) Qty: 120 2RF Discharge Orders: Discharge ED (Routine); Ordered 06/21/23 Ordered By: Godfrey Gonzalez Referrals: Julián Pierre MD [Primary Care Provider] - 4-7 days Discharge Diet: Usual diet Patient Instructions: Abdominal Pain (ED) Activity Restrictions/Additional Instructions: We suspect that the cause of your symptoms was psychogenic nonepileptic seizures. Technically, this diagnosis cannot be made until an EEG has been performed. Therefore it is a tentative working diagnosis. You responded very well to olanzapine and Ativan. I have sent a referral to neurology for you to have follow-up and consideration of EEG. Please read the handout I gave you concerning nonepileptic seizures. Return to the emergency department if you have fever, neck stiffness, rash, altered mental status, weakness, loss of consciousness, or other acute medical concerns. Consider avoiding driving until your follow-up appointment. Coding Level of Care Code ED [employer] for Vanessa Galvan
--- NOTE | 2023-06-21 19:04 | PC.NURSE ---
NURSE ASSUMED CARE AT 1830
[2023-06-21 19:05] VITALS: BP 122/78; PULSE 78; O2SAT 100
[2023-06-21 19:25] LABS: Basophils % 0.4 %; Eosinophils % 0.2 %; Hematocrit 46.1 % (36-47); Lymphocytes # 2.4 10^3/uL (0.8-4.8); Lymphocytes % 25.9 %; Mean Corpuscular HGB Conc 32.8 g/dL (30-55); Mean Corpuscular Hemoglobin 29.5 pg (27-33); Mean Platelet Volume 9.7 fL (7.4-10.4); Monocytes # 0.9 10^3/uL (0.2-0.9); Monocytes % 10.3 %; Neutrophils # 5.77 10^3/uL (1.8-7.7); Nucleated Red Blood Cells % 0 %; Platelet Count 440 10^3/cmm (157-399); Red Blood Count 5.12 10^6/uL (3.85-5.65); Red Cell Distribution Width 12.9 % (12.1-15.1); White Blood Count 9.16 10^3/uL (3.29-11.43)
[2023-06-21 19:37] LABS: Alanine Aminotransferase 10 U/L (0-33); Albumin Level 4.6 g/dL (3.5-5.2); Alkaline Phosphatase 59 U/L (35-105); Aspartate Amino Transferase 18 U/L (0-32); Blood Urea Nitrogen 7 mg/dL (6-20); Calcium 9.6 mg/dL (8.5-10.5); Carbon Dioxide 22 mmol/L (22-29); Chloride 108 mmol/L (98-107); Globulin 3.1 g/dL (1.3-4.6); Glomerular Filtration Rate 103.7 mL/min (90-130); Glucose 94 mg/dL (65-115); Lipase 25 U/L (13-60); Magnesium 2.1 mg/dL (1.7-2.3); Osmolality Calculated 292 mOsm/kg (285-295); Sodium 142 mmol/L (136-145); Total Bilirubin 0.4 mg/dL (0.15-1.2); Total Protein 7.7 g/dL (6.6-8.7)
[2023-06-21 19:44] LABS: HCG Qualitative Urine. Negative (Negative)
[2023-06-21] MEDS: OLANZapine 5 mg ODT PO (19:49)
[2023-06-21] MEDS: LORazepam 2 mg/mL INJ 10 mL MDV 1 MG IVP (19:49)
[2023-06-21 19:51] VITALS: BP 106/69; PULSE 90; RESP 16; O2SAT 98
--- NOTE | 2023-06-21 19:52 | PC.NURSE ---
report given by Libertad Rn @ [id number], pt stable with no current complaints or concerns. 20ga in left AC clean dry and intact.
[2023-06-21 20:15] LABS: Add Urine Microscopic? NO; Charge for UA Resulting for Rev
[2023-06-21 20:19] LABS: Bilirubin Urine Neg (Negative); Blood Urine Neg (Negative); Glucose Urine UA Norm (Normal); Ketones Urine Negative (Negative); Leukocyte Esterase Urine Negative (Negative); Nitrate Urine Negative (Negative); Protein Urine Neg (Negative); Specific Gravity, Urine 1.005 (1.005-1.030); Urine Appearance Clear (CLEAR); Urine Color Straw (Yellow); Urobilinogen Urine Norm (Negative); pH Urine 7 (5-7)
[2023-06-21 20:23] VITALS: BP 105/60; PULSE 82; RESP 16; O2SAT 99
[2023-06-21 20:27] LABS: Amphetamines Screen Urine Negative (Negative); Barbiturates Screen Urine Negative (Negative); Benzodiazepines Screen Urine Negative (Negative); Cocaine Screen Urine Negative (Negative); Opiate Screen Urine Negative (Negative); PCP Screen Urine Negative (Negative); THC Screen Urine Negative (Negative)
[2023-06-21 21:03] VITALS: BP 109/67; PULSE 68; O2SAT 100
--- NOTE | 2023-06-23 07:42 | DCPLANNER ---
Message was sent to neurology on 06/23/23 at 0742 am. Clinic to contact patient.
== END 2023-06-21 21:08 | disposition home or self-care (01) ==
PROVIDERS: Emergency Provider Emergency Medicine; PCP Family Medicine
DX: R56.9 Unspecified convulsions (principal); R10.9 Unspecified abdominal pain
CPT/HCPCS: 70450; 80053; 80306; 81003; 81025; 83690; 83735; 84443; 85025; 96374; 99285; J2060

== ENCOUNTER → 2023-10-13 10:04 | Outpatient (BNVA) | payer MEDICAID, SELFPAY ==
[2021-11-18 14:04] VITALS: BP 106/67; BMI 22.6
== END ==
PROVIDERS: PCP Family Medicine; Visit Provider Family Medicine
DX: M62.830 Muscle spasm of back (principal); R42 Dizziness and giddiness; F41.1 Generalized anxiety disorder; F33.2 Major depressive disorder, recurrent severe without psychotic features; R10.9 Unspecified abdominal pain; R79.89 Other specified abnormal findings of blood chemistry; E55.9 Vitamin D deficiency, unspecified; Z11.4 Encounter for screening for human immunodeficiency virus [HIV]; Z11.59 Encounter for screening for other viral diseases; Z76.89 Persons encountering health services in other specified circumstances
CPT/HCPCS: 80053; 81003; 81025; 82306; 82607; 82728; 82746; 83540; 83735; 84439; 84443; 85025; 85651; 86038; 86140; 86431; 86803; 87806

== ENCOUNTER → 2023-10-25 14:00 | Outpatient (BNVA) | payer MEDICAID, SELFPAY ==
[2021-11-18 14:04] VITALS: BP 106/67; BMI 22.6
== END ==
PROVIDERS: PCP Family Medicine; Visit Provider Nurse Practitioner Family
DX: N89.8 Other specified noninflammatory disorders of vagina (principal)
CPT/HCPCS: 87070; 87205

== ENCOUNTER → 2025-01-15 14:58 | Outpatient (BNVA) | payer OTHER, SELFPAY ==
[2024-08-21 11:38] VITALS: BP 106/67; BMI 22.6
== END ==
PROVIDERS: PCP Family Medicine; Visit Provider Nurse Practitioner Psychiatric/Mental Health
DX: Z79.899 Other long term (current) drug therapy (principal)
CPT/HCPCS: 80053; 80061; 82306; 83036